=== PATIENT | male | born 1975 | race Caucasian/White ===

== ENCOUNTER 2024-03-13 21:51 | Emergency (ER) | payer OTHER, SELFPAY ==
[2024-03-13 22:02] VITALS: BP 163/86; PULSE 56; RESP 18; TEMP 36.9; O2SAT 98; BMI 28.3
--- NOTE | 2024-03-13 22:09 | ED_ITS ---
HPI - General Adult General Chief complaint: Nausea/Vomiting Stated complaint: food poisoning Time Seen by Provider: 03/13/24 22:08 History of Present Illness HPI narrative: Pt c/o nausea, chest pain, left abdominal pain, and not feeling right that started about 20 minutes after eating at [place] restaurant in [place] this evening. Pt states he feels like he needs to vomit but has not yet vomited and pain has gotten worse and worse. Pt took pepto bismal around 1930. Hx salmonella poisoning. 48-year-old man presenting to the emergency department with concern of food poisoning. Reports history of some no poisoning the past. Is feeling fine earlier today. Went to eat some cold [place] food at a restaurant and about 10 minutes later felt discomfort apparently the abdomen like he needed have a bowel movement. Had a small loose stool. Had a couple since. Though with further questioning is actually having some left-sided chest discomfort. Seems to hurt somewhat to take a deeper breath. Has been having some nausea. Denies a history of bowel surgeries. Did have a colonoscopy 3 years ago. Abdominal pain on questioning again seems to be more epigastric. No history of abdominal surgeries. Related Data Home Medications ?Medication ?Instructions ?Recorded ?Confirmed fenofibrate 160 mg tablet 160 mg PO DAILY 03/13/24 03/13/24 Allergies Allergy/AdvReac Type Severity Reaction Status Date / Time No Known Drug Allergies Allergy Verified 03/13/24 22:06 Review of Systems Status of ROS: Reports: 6 or more systems reviewed and unremarkable except as noted in History and below [facility] PFS Social History Smoking Status: Never smoker Do you use any of these nicotine containing products: None Second hand tobacco smoke exposure: No How often do you have a drink containing alcohol: 2-3 times a week How many standard drinks containing alcohol do you have on a typical day: 1 or 2 AUDIT-C Alcohol total score: 3 Non-prescribed substance use: denies use Exam Narrative: Exam Narrative: Restless in apparent discomfort. Mildly labored in breathing. Skin is warm and dry. No rash in areas of discomfort. Lungs are clear. Pain is somewhat reproducible over the left medial chest but not really sternal. There is some discomfort on reexamination also in the epigastrium. A little bit into the right upper quadrant. Abdomen also is relatively generally mildly tender. Bowel sounds are present. No masses. No flank pain. Extremities are well perfused. Heart in regular rate and rhythm. Blood pressure noted a little bit elevated on arrival. Const: Vital Signs, click to edit/add: Vital Signs - 24 hr 03/13/24 22:02 03/14/24 00:00 03/14/24 00:19 Temperature 98.4 F 98.4 F Pulse Rate [Pulse Oximeter] 56 L Respiratory Rate 18 Blood Pressure [Ri ght Upper Arm] 163/86 H Pulse Oximetry 98 98 Oxygen Delivery Me thod Room Air 03/14/24 00:59 03/14/24 01:40 03/14/24 02:35 Temperature 98.4 F 98.4 F 98.4 F Pulse Rate [Pulse Oximeter] 74 79 Respiratory Rate 18 18 Blood Pressure [Ri ght Upper Arm] 138/83 135/74 Pulse Oximetry 98 98 Oxygen Delivery Me thod Room Air Room Air 03/14/24 02:36 Temperature 98.4 F Pulse Rate [Pulse Oximeter] 79 Respiratory Rate 18 Blood Pressure [Ri ght Upper Arm] 135/74 Pulse Oximetry Oxygen Delivery Me thod Documenting provider has reviewed patient's vital signs: yes Course Vital Signs Vital signs: Initial Vital Signs Temperature 98.4 F 03/13/24 22:02 Temperature Source Temporal Artery Scan 03/13/24 22:02 Pulse Rate 56 L 03/13/24 22:02 Respiratory Rate 18 03/13/24 22:02 Blood Pressure 163/86 H 03/13/24 22:02 Blood Pressure Mean 111 H 03/13/24 22:02 Blood Pressure Position Sitting 03/13/24 22:02 Pulse Oximetry 98 03/13/24 22:02 Oxygen Delivery Method Room Air 03/13/24 22:02 Vital Signs Temperature 98.4 F 03/13/24 22:02 Pulse Rate 56 L 03/13/24 22:02 Respiratory Rate 18 03/13/24 22:02 Blood Pressure 163/86 H 03/13/24 22:02 Pulse Oximetry 98 03/13/24 22:02 Oxygen Delivery Method Room Air 03/13/24 22:02 Temperature 98.4 F 03/14/24 02:36 Pulse Rate 79 03/14/24 02:36 Respiratory Rate 18 03/14/24 02:36 Blood Pressure 135/74 03/14/24 02:36 Pulse Oximetry 98 03/14/24 02:35 Oxygen Delivery Method Room Air 03/14/24 02:35 Medications Administered Medications: Discontinued Medications Generic Name Dose Route Start Last Admin Trade Name Christian PRN Reason Stop Dose Admin Sodium Chloride 1,000 mls @ 1,000 mls/hr 03/13/24 22:21 03/13/24 23:26 0.9 % Sodium Chloride 1000 Ml IV 03/13/24 23:20 Infused .Q1H ONE Infusion Ketorolac Tromethamine 30 mg 03/14/24 00:13 03/14/24 00:19 Ketorolac 30 Mg/Ml Inj IVP 03/14/24 00:14 30 mg ONCE ONE Administration Lidocaine/Aluminum/Magnesium/Simeth 30 ml 03/14/24 01:37 03/14/24 01:40 Gi Cocktail (Visc Lido/Antacid) 30 Ml PO 03/14/24 01:38 30 ml ONCE ONE Administration Ondansetron HCl 4 mg 03/13/24 22:21 03/13/24 22:38 Ondansetron 2 Mg/Ml Inj IVP 03/13/24 22:22 4 mg ONCE ONE Administration Medical Decision Making MDM Narrative Medical decision making narrative: Differential includes enteritis, colitis. This might actually be cardiac and will need to investigate this. Perhaps abdominal pain is just distraction. Gallbladder disease? Pancreatitis? Vascular disruption? gastritis? He did say he is not passing gas at this point but has recently had some bowel movements. Suppose bowel obstruction could be present as well. He maintains that he does not need anything for pain really. He would like something for nausea though. IV is initiated. Given L normal saline and Zofran. Labs and chest and abdomen imaging. I review chest and abdomen looks to be WNL. No pneumonia. No pneumothorax. Normal bowel pattern not suggestive of constipation or small bowel obstruction. Does have moderately elevated white count. Moderately elevated transaminases as well. I think more likely these are related to fatty liver but with this location of pain have requested limited abdominal ultrasound. I discussed these findings with the technologist. Unfortunately somewhat contracted gallbladder but no evidence of inflammatory changes or stones present otherwise. Admittedly negative Vargas's on physical exam as well. Still with pain given ketorolac. On reassessment this did not make much of a difference. Added D-dimer and this being normal I think less likely is a vascular disruption. Given GI cocktail ultimately and this really did seem to help his discomfort. Rather diffuse and demonstration of significant symptoms that appeared initially and persistently more than dyspepsia. See patient discharge plan for further discussion/plan Might yet benefit from a week or 2 of famotidine. Lab Data Lab results reviewed: Yes I reviewed the patient's lab results Labs: Lab Results 03/13/24 03/13/24 03/13/24 Range/Units 22:22 22:25 22:55 WBC 14.99 H (4.50-11.00) K/uL RBC 4.55 (4.30-5.90) m/uL Hgb 13.9 (13.5-17.5) gm/dL Hct 40.2 (37.0-53.0) % MCV 88 (80-100) fL MCH 31 (26-34) pg MCHC 35 (32-36) gm/dL RDW Coeff of Jose 12.8 (11.5-15.5) % Plt Count 290 (140-440) K/uL Neut % (Auto) 70.3 (42.0-72.0) % Lymph % (Auto) 20.3 (20-44) % [place] % (Auto) 6.7 (0.0-11.0) % Eos % (Auto) 1.8 (0.0-7.0) % Baso % (Auto) 0.2 (0.0-3.0) % Neut # (Auto) 10.50 H (1.7-7.0) K/uL Lymph # (Auto) 3.00 H (0.90-2.90) K/uL [place] # (Auto) 1.00 H (0.00-0.90) K/UL Eos # (Auto) 0.30 (0.00-0.50) K/uL Baso # (Auto) 0.00 (0.00-0.30) K/uL Abs Immat Gran (auto) 0.10 (0.00-0.30) K/uL Imm/Tot Granulo (auto) 0.7 % D-Dimer Quant (PE/DVT) 0.12 (0.00-0.50) ug/ml Sodium 139 (135-149) mmol/L Potassium 3.8 (3.6-5.1) mmol/L Chloride 110 (96-114) mmol/L Carbon Dioxide 21 (20-32) mmol/L Anion Gap 8 (7-15) mEq/L BUN 18 (5-24) mg/dL Creatinine 0.8 (0.5-1.5) mg/dL Estimated Creat Clear 89.89 Estimated GFR 108 ml/min Glucose 165 H (60-115) mg/dL Calcium 8.8 (8.4-10.6) mg/dL Total Bilirubin 0.6 (0.1-1.5) mg/dL Direct Bilirubin 0.4 (0.0-0.5) mg/dL AST 50 H (12-35) U/L ALT 83 H (4-50) U/L Alkaline Phosphatase 49 (40-150) U/L Troponin I < 0.01 L (0.01-0.04) ng/mL C-Reactive Protein < 0.5 L (0.5-1.0) mg/dL NT-Pro-B Natriuret Pep 25 pg/mL Total Protein 7.9 (6.0-8.3) g/dL Albumin 4.8 (3.3-5.0) g/dL Lipase 84 (23-300) U/L Lab Acknowledgement POC Troponin I 0.00 L (0.01-0.04) ng/ml 03/14/24 Range/Units 01:36 WBC (4.50-11.00) K/uL RBC (4.30-5.90) m/uL Hgb (13.5-17.5) gm/dL Hct (37.0-53.0) % MCV (80-100) fL MCH (26-34) pg MCHC (32-36) gm/dL RDW Coeff of Jose (11.5-15.5) % Plt Count (140-440) K/uL Neut % (Auto) (42.0-72.0) % Lymph % (Auto) (20-44) % [place] % (Auto) (0.0-11.0) % Eos % (Auto) (0.0-7.0) % Baso % (Auto) (0.0-3.0) % Neut # (Auto) (1.7-7.0) K/uL Lymph # (Auto) (0.90-2.90) K/uL [place] # (Auto) (0.00-0.90) K/UL Eos # (Auto) (0.00-0.50) K/uL Baso # (Auto) (0.00-0.30) K/uL Abs Immat Gran (auto) (0.00-0.30) K/uL Imm/Tot Granulo (auto) % D-Dimer Quant (PE/DVT) (0.00-0.50) ug/ml Sodium (135-149) mmol/L Potassium (3.6-5.1) mmol/L Chloride (96-114) mmol/L Carbon Dioxide (20-32) mmol/L Anion Gap (7-15) mEq/L BUN (5-24) mg/dL Creatinine (0.5-1.5) mg/dL Estimated Creat Clear Estimated GFR ml/min Glucose (60-115) mg/dL Calcium (8.4-10.6) mg/dL Total Bilirubin (0.1-1.5) mg/dL Direct Bilirubin (0.0-0.5) mg/dL AST (12-35) U/L ALT (4-50) U/L Alkaline Phosphatase (40-150) U/L Troponin I (0.01-0.04) ng/mL C-Reactive Protein (0.5-1.0) mg/dL NT-Pro-B Natriuret Pep pg/mL Total Protein (6.0-8.3) g/dL Albumin (3.3-5.0) g/dL Lipase (23-300) U/L Lab Acknowledgement Test Added POC Troponin I (0.01-0.04) ng/ml ECG Data Attestation: I personally reviewed and interpreted this ECG as follows: (Normal sinus rhythm. Rate of 65) Discharge Plan Discharge Clinical Impression: Gastroenteritis, Abdominal pain Patient Disposition: Home, Self-Care Condition: Improved Additional Instructions: Focus on hydration. Slow advance of diet over the next 24-36 hours. Start with diluted juices and soup broths, rice, toast, crackers. Be seen/return for uncontrolled pain, intractable vomiting, associated fever. If needed for diarrhea could take loperamide; as long as you do not have any fever and you do not have any blood in your stool. This is available [email or web address] from [facility] for nausea if you need. Prescriptions: No Action fenofibrate 160 mg tablet 160 mg PO DAILY Follow Up/Referrals: Mich Abarca MD [Primary Care Provider] - Stand Alone Forms: [employer] Info Instructions
--- NOTE | 2024-03-13 22:21 | CRLHL7_ITS ---
For Patients: As a result of the Century Cures Act, medical imaging exams and procedure reports are released immediately into your electronic medical record. You may view this report before your referring provider. If you have questions, please contact your health care provider. Indication: Loose stool, abdominal pain. Technique: Abdomen 4 view. Comparison: None. Findings: Bowel: Nonobstructive bowel gas pattern. Normal colonic stool burden. Other: No sign of free air. No sign of soft tissue mass. The lung bases are clear. Osseous structures are unremarkable for age. Impression: No evidence of an acute intra-abdominal process. Dictated by Gavin Menchaca MD @ 03/14/2024 12:56:40 AM (Electronically Signed)
--- NOTE | 2024-03-13 22:21 | CRLHL7_ITS ---
For Patients: As a result of the Century Cures Act, medical imaging exams and procedure reports are released immediately into your electronic medical record. You may view this report before your referring provider. If you have questions, please contact your health care provider. INDICATION: Left chest pain. TECHNIQUE: Chest 1 view. COMPARISON: None. FINDINGS: Cardiovascular and mediastinum: Heart size and vasculature are normal in caliber and appearance. Lungs and pleural spaces: Lungs are clear. No sign of infiltrate or mass. No sign of pleural effusion. No pneumothorax. Bones and soft tissues: Unremarkable for age. IMPRESSION: No evidence of an acute pulmonary process. Dictated by Gavin Menchaca MD @ 03/14/2024 12:55:21 AM (Electronically Signed)
[2024-03-13] MEDS: 0.9 % SODIUM CHLORIDE 1000 ml 1,000 ML IV (22:38)
[2024-03-13] MEDS: ONDANSETRON 2 MG/ML inj 4 MG IVP (22:38)
[2024-03-13 23:01] LABS: Basophils Percent Auto 0.2 % (0.0-3.0); Eosinophils Percent Auto 1.8 % (0.0-7.0); Hematocrit 40.2 % (37.0-53.0); Hemoglobin* 13.9 gm/dL (13.5-17.5); Immature Granulocytes Pct Auto 0.7 %; Lymphocytes Percent Auto 20.3 % (20-44); Mean Corpuscular HGB Conc 35 gm/dL (32-36); Mean Corpuscular Hemoglobin 31 pg (26-34); Mean Corpuscular Volume 88 fL (80-100); Monocytes Percent Auto 6.7 % (0.0-11.0); Neutrophils Percent Auto 70.3 % (42.0-72.0); Platelet Count* 290 K/uL (140-440); RDW Coefficient of Variation % 12.8 % (11.5-15.5); Red Blood Count 4.55 m/uL (4.30-5.90); Slide Review Reflex No; White Blood Count* 14.99 K/uL (4.50-11.00)
[2024-03-13 23:05] LABS: Albumin* 4.8 g/dL (3.3-5.0); Chloride* 110 mmol/L (96-114); Sodium* 139 mmol/L (135-149)
[2024-03-13 23:06] LABS: Potassium* 3.8 mmol/L (3.6-5.1)
[2024-03-13 23:07] LABS: Creatinine* 0.8 mg/dL (0.5-1.5); Est. Creatinine Clearance* 89.89; Estimated Glomerular Filt Rate 108 ml/min
[2024-03-13 23:08] LABS: Alkaline Phosphatase* 49 U/L (40-150); Anion Gap 8 mEq/L (7-15); Aspartate Amino Transferase* 50 U/L (12-35); Bilirubin Direct* 0.4 mg/dL (0.0-0.5); Bilirubin Total* 0.6 mg/dL (0.1-1.5); Blood Urea Nitrogen* 18 mg/dL (5-24); Carbon Dioxide* 21 mmol/L (20-32); Glucose* 165 mg/dL (60-115); Lipase* 84 U/L (23-300); Total Protein* 7.9 g/dL (6.0-8.3)
[2024-03-13 23:09] LABS: Alanine Aminotransferase* 83 U/L (4-50); Calcium* 8.8 mg/dL (8.4-10.6)
[2024-03-13 23:16] LABS: C Reactive Protein* < 0.5 mg/dL (0.5-1.0)
[2024-03-13 23:23] LABS: NT Pro B Type NatriureticPept* 25 pg/mL; Troponin I* < 0.01 ng/mL (0.01-0.04)
--- NOTE | 2024-03-13 23:25 | CRLHL7_ITS ---
For Patients: As a result of the Century Cures Act, medical imaging exams and procedure reports are released immediately into your electronic medical record. You may view this report before your referring provider. If you have questions, please contact your health care provider. INDICATION: Epigastric pain. TECHNIQUE: Ultrasound abdomen limited. Sonographic images of the right upper quadrant were obtained using petty-scale and color Doppler images. COMPARISON: None. FINDINGS: Liver: Diffusely increased hepatic echogenicity. Normal size. No suspicious masses. No intrahepatic biliary dilatation. Gallbladder: Contracted, otherwise unremarkable. Normal wall thickness. No pericholecystic fluid. Negative sonographic Vargas`s sign. Common bile duct: 2 mm. Pancreas: Obscured by bowel gas. Right kidney: Normal in size. Normal echotexture and cortex. No suspicious masses, stones, or hydronephrosis. Vasculature: Proximal abdominal aorta and IVC are unremarkable. IMPRESSION: 1. Hepatic steatosis. 2. Unremarkable gallbladder. Dictated by Gavin Menchaca MD @ 03/14/2024 1:27:42 AM (Electronically Signed)
[2024-03-14] VITALS: O2SAT 98
[2024-03-14 00:19] VITALS: TEMP 36.9
[2024-03-14] MEDS: KETOROLAC 30 MG/ML inj IVP (00:19)
[2024-03-14 00:59] VITALS: BP 138/83; PULSE 74; RESP 18; TEMP 36.9; O2SAT 98
[2024-03-14 01:40] VITALS: TEMP 36.9
[2024-03-14] MEDS: GI COCKTAIL (VISC LIDO/ANTACID) 30 ML PO (01:40)
[2024-03-14 01:48] LABS: D Dimer Quantitative* 0.12 ug/ml (0.00-0.50)
[2024-03-14 02:35] VITALS: BP 135/74; PULSE 79; RESP 18; TEMP 36.9; O2SAT 98
[2024-03-14 02:36] VITALS: BP 135/74; PULSE 79; RESP 18; TEMP 36.9
== END 2024-03-14 02:36 | disposition home or self-care (01) ==
PROVIDERS: Emergency Provider Family Medicine; PCP Surgery
DX: K52.9 Noninfective gastroenteritis and colitis, unspecified (principal)
CPT/HCPCS: 36415; 71045; 74019; 76705; 80048; 80076; 83690; 83880; 84484; 85025; 85379; 86140; 93005; 94761; 96374; 96375; 99284; A9270; J1885; J2405; J7030